=== PATIENT | male | born 1935 | race African-American/Black ===

== ENCOUNTER → 2020-12-10 | Day surgery (SDC) | payer MEDICARE ==
[2020-12-07 08:22] LABS: BASOPHILS % 0.2 % (0.0-1.0); EOSINOPHILS # (AUTO) 0.1 (0.0-0.4); EOSINOPHILS % 2.7 % (0.0-6.0); HEMATOCRIT 35.2 % (38.2-49.6); HEMOGLOBIN 11.4 g/dL (14.0-18.0); LYMPHOCYTES % 41.9 % (18.0-39.1); MEAN CORPUSCULAR HEMOGLOBIN 29.7 pg (28-32); MEAN CORPUSCULAR HGB CONC 32.4 g/dL (31-35); MEAN CORPUSCULAR VOLUME 91.7 fL (81-99); MONOCYTES # (AUTO) 0.6 (0.2-0.8); MONOCYTES % 11.7 % (4.4-11.3); NEUTROPHILS # (AUTO) 2.1 (2.1-6.9); NEUTROPHILS % 43.5 % (38.7-80.0); PLATELET COUNT 154 x10e3/uL (140-360); RED BLOOD COUNT 3.84 x10e6/uL (4.3-5.7); RED CELL DISTRIBUTION WIDTH 14.1 % (11.7-14.4)
[~2020-12-10] MED LIST: AMLODIPINE BESY10 MG PO; BREO ELLIPTA 21 EACH INH; DIOVAN160 MG PO; MIDAZOLAM HCL 2 MG/2 ML VIAL ONE; TRIAMTERENE-HCTZ1 EA PO; VITAMIN D3 PO
[2020-12-10 15:05] VITALS: BP 123/68
== END | disposition home or self-care (01) ==
LOC: OR 10:52
PROVIDERS: ATTEND Internal Medicine Gastroenterology
DX: K64.1 Second degree hemorrhoids (principal); K63.5 Polyp of colon; Z85.038 Personal history of other malignant neoplasm of large intestine; Z98.0 Intestinal bypass and anastomosis status; Z71.3 Dietary counseling and surveillance; G47.33 Obstructive sleep apnea (adult) (pediatric); I10 Essential (primary) hypertension; E66.9 Obesity, unspecified; Z01.812 Encounter for preprocedural laboratory examination; Z20.822 Contact with and (suspected) exposure to COVID-19; Z68.30 Body mass index [BMI] 30.0-30.9, adult; Z85.46 Personal history of malignant neoplasm of prostate
CPT/HCPCS: 36415; 45380; 85025; J2250; U0002; 45378

== ENCOUNTER → 2022-12-17 | Outpatient (REF) | payer MEDICARE ==
[~2022-12-17] MED LIST changes: +ALBUTEROL SULF 0.083% NEB SOLN 3 ML NEB NEB SCH; +ALBUTEROL SULF 0.083% NEB SOLN 3 ML NEB NEB STA; +ALBUTEROL SULF 0.083% NEB SOLN 3 ML NEB ONE; -MIDAZOLAM HCL 2 MG/2 ML VIAL ONE
== END ==
LOC: RESP 07:25 → EDSTATUS 08:00
PROVIDERS: ATTEND Internal Medicine Critical Care Medicine
DX: R06.02 Shortness of breath (principal); J45.909 Unspecified asthma, uncomplicated; I10 Essential (primary) hypertension; E66.3 Overweight
CPT/HCPCS: 94060; 94640; 94727; 94729